=== PATIENT | male | born 1955 | race Caucasian/White ===

== ENCOUNTER 2024-09-26 08:01 | Outpatient (CLI) | payer OTHER, SELFPAY ==
--- NOTE | 2024-09-26 08:00 | ECG_ITS ---
Test Date: 2024-09-26 08:28:24 Measurements Intervals [place] Rate: 62 P: 62 CA: 156 QRS: 16 QRSD: 109 T: 49 QT: 404 QTc: 411 Interpretive Statements SINUS RHYTHM POSSIBLE LEFT ATRIAL ENLARGEMENT [-0.1mV P WAVE IN V1/V2] No previous ECG available for comparison Electronically Signed On 09-26-2024 14:53:44 CDT by Barb Mcdonald M.D.
--- OUTSIDE RECORDS SUMMARY | 2024-09-26 08:14 | XMS_ITS | Encounter Summary ---
Author Organization [facility] Address [facility] [place] [address] Care Team Providers Care Whitewater Rafting Guide Name Role Phone Henrry Coffman MD Primary Care Provider [phone] Nallely Navas MD Unavailable [phone] Encounter Details Date Type Department Care Team (Latest Contact Info) Description 11/24/2023 LinkCyclehart Message Enc [facility] Mult[facility]pecialty [facility] - [address] [place] [address] Henrry Coffman MD [facility] [address] [address] Blood pressure reading needed Social History Tobacco Use Types Packs/Day Years Used Date Smoking Tobacco: Never Smokeless Tobacco: Never Comments:Counseled by DR Ava adames. Alcohol Use Standard Drinks/Week Comments Yes 0 (1 standard drink = 0.6 oz pur e alcohol) 2 drinks weekly (beer or wine) PHQ-2 Answer Date Recorded Patient Health Questionnaire-2 Score 0 11/03/2023 Sex and Gender Information Value Date Recorded Sex Assigned at Not on file Legal Sex Male 7:24 PM CDT Gender Identity Not on file Sexual Orientation Not on file documented as of this encounter Plan of Treatment Upcoming Encounters Date Type Department Care Team (Late st Contact Info) Description 11/14/2024 7:20 AM CDT Office Visit [facility]pec[facility]ty [facility] - [address] [place] [address] Henrry Coffman MD [facility] [address] [address] documented as of this encounter Visit Diagnoses Not on filedocumented in this encounter Additional Health Concerns Assessment Noted Time PHQ-9 Depression Total Score: 0 11/03/19 24 8:07 AM CDT documented as of this encounter Care Teams Whitewater Rafting Guide Relationship Specialty Start Date End Date Henrry Coffman MD [address] [facility] [address] [place] [address] PCP - General INTERNAL MEDICINE 12/21/22 [place] [address] [address] Surgeon SURGERY 03/29/24 documented as of this encounter
--- OUTSIDE RECORDS SUMMARY | 2024-09-26 08:14 | XMS_ITS | Referral Summary ---
Author Organization [facility] Address [address] [address] [facility] [address] [place] [address] Care Team Providers Care Film Color Tester Name Role Phone Unavailable Primary Care Provider Unavailabl e Source Comments [facility],non-owned Affiliates and Associated Physician Practices is amultiple site organization consisting of ambulatory clinics and hospital sitesin [place], [place] and [place]. This disclosure is being madepursuant to the Care Everywhere program and may not contain all information available regarding this patient. Last updated 18.[facility] Banter! Allergies No known active allergies Medications * Be aware that medications may not be up to date on this document. Alwaysverify current medications with the patient. Medication Sig Dispensed Refills Start Date End Date Status LORazepam (ATIVAN) 1 MG tablet Take 1 mg by mouth every 8 hours as needed for Anxiety Active metoprolol succinate XL 24hr (TOPROL XL) 50 MG tablet Take 50 mg by mouth once daily Active buPROPion SR 12hr (WELLBUTRIN-SR) 100 MG tabletIndications:Re current major depressive disorder, in partial remission (HCC) Take 1 tablet by mouth once daily 30 tablet 09/28/2017 Active benzonatate (TESSALON) 200 MG capsuleIndications:A cute maxillary sinusitis, recurrence not specified Take 1 capsule by mouth 3 times daily as needed for Cough 30 capsule 09/28/2017 Active Social History Tobacco Use Types Packs/Day Years Used Date Smoking Tobacco: Never Smokeless Tobacco: Never Sex and Gender Information Value Date Recorded Sex Assigned at Not on file Gender Identity Not on file Sexual Orientation Not on file Last Filed Vital Signs Vital Sign Reading Time Taken Comments Blood Pressure 158/98 09/28/2017 1:05 PM CDT Pulse 89 09/28/2017 12:43 PM CDT Temperature 37.2 C (98.9 F) 09/28/2017 12:43 PM CDT Respiratory Rate 16 09/28/2017 12:43 PM CDT Oxygen Saturation 96% 09/28/2017 12:43 PM CDT Inhaled Oxygen Concentration - - Weight 72.1 kg (159 lb) 09/28/2017 12:43 PM CDT Height 174 cm (5' 8.5 ) 09/28/2017 12:43 PM CDT Body Mass Index 23.82 09/28/2017 12:43 PM CDT Plan of Treatment Not on file
--- OUTSIDE RECORDS SUMMARY | 2024-09-26 08:14 | XMS_ITS | Encounter Summary ---
Author Organization [facility] Address [facility] [place] [address] Care Team Providers Care Logistics Intern Name Role Phone Henrry Coffman MD Primary Care Provider [phone] Nallely Navas MD Unavailable [phone] Encounter Details Date Type Department Care Team (Latest Contact Info) Description 08/06/2024 StreamBase Systemshart Message Enc [facility] Mult[facility]pecialty Care - [place] [address] [place] [address] [address] [place] [address] Henrry Coffman MD [address] [facility] [address] [place], [place] [id number] Hernia surgery referral Social History Tobacco Use Types Packs/Day Years Used Date Smoking Tobacco: Never Passive Smoke Exposure: Past Smokeless Tobacco: Never Comments:Counseled by DR Ava adames. Alcohol Use Standard Drinks/Week Comments Yes 2 (1 standard drink = 0.6 oz pur e alcohol) AUDIT-C Answer Date Recorded Q1: How often do you have a drink containing alc ohol? Patient declined 03/28/2024 Q2: How many drinks containi ng alcohol do you have on a typical day when you are drinking? Patient declined 03/28/2024 Q3: How often do you have si x or more drinks on one occasion? Patient declined 03/28/2024 PHQ-2 Answer Date Recorded Patient Health Questionnaire-2 Score 0 05/16/2024 Sex and Gender Information Value Date Recorded Sex Assigned at Not on file Legal Sex Male 7:24 PM CDT Gender Identity Not on file Sexual Orientation Not on file documented as of this encounter Plan of Treatment Upcoming Encounters Date Type Department Care Team (Late Contact Info) Description 11/14/2024 7:20 AM CDT Office Visit [facility] Mult[facility]pecialty Care - [place] [address] [address] [place] [address] Henrry Coffman MD [address] [place] [address] documented as of this encounter Visit Diagnoses Not on filedocumented in this encounter Additional Health Concerns Assessment Noted Time PHQ-9 Depression Total Score: 0 05/16/20 7:58 AM CDT documented as of this encounter Care Teams Logistics Intern Relationship Specialty Start Date End Date Henrry Coffman MD [address] [place] [address] PCP - General INTERNAL MEDICINE 12/21/22 Nallely Navas MD [address] [place] [address] [place] [address] Surgeon SURGERY 03/29/24 documented as of this encounter
--- OUTSIDE RECORDS SUMMARY | 2024-09-26 08:14 | XMS_ITS | Patient Health Summary ---
Author Organization [facility] Address [address] [place] [address] Care Team Providers Care Community Service Director Name Role Phone Unavailable Primary Care Provider Unavailabl e Note from [facility],non-owned Affiliates and Associated Physician Practices is amultiple site organization consisting of ambulatory clinics and hospital sitesin [place], [place] and [place]. This disclosure is being madepursuant to the Care Everywhere program and may not contain all information available regarding this patient. Last updated 18.[facility] dotCloud Allergies No known active allergies Medications * Be aware that medications may not be up to date on this document. Alwaysverify current medications with the patient. * LORazepam (ATIVAN) 1 MG tablet Take 1 mg by mouth every 8 hours as needed for Anxiety * metoprolol succinate XL 24hr (TOPROL XL) 50 MG tablet Take 50 mg by mouth once daily * buPROPion SR 12hr (WELLBUTRIN-SR) 100 MG tablet(Started 09/28/2017) Take 1 tablet by mouth once daily * benzonatate (TESSALON) 200 MG capsule(Started 09/28/2017) Take 1 capsule by mouth 3 times daily as needed for Cough Social History Tobacco Use Types Packs/Day Years [...] Mass Index 23.82 09/28/2017 12:43 PM CDT Procedures * STREP A SCREEN - POINT OF CARE (AMB) STL(Performed 09/28/2017) Performed for Acute maxillary sinusitis, recurrence not specified * PATHOLOGY REPORTS - HPF HISTORICAL(Performed 12/26/2008) Results * STREP A SCREEN - POINT OF CARE (AMB) STL (09/28/2017 1:03 PM CDT) Strep A Rapid POCT Negative Negative Strep A Internal Control Present Lot # [id number] Expiration Date 04 08 2019 Throat ENTIRE THROAT (SURFACE REGION OF NECK) / Unknown 09/28/2017 1:03 PM CDT Erica Higginbotham APRN-[employer] SYSTEMS ENGINEER LAB - POINT OF CA RE ORDERABLES * PATHOLOGY REPORTS - HPF HISTORICAL (12/26/2008 3:22 PM CDT) 12/26/2008 3:[address] [facility] - 12/26/2008 3:22 PM CDT Zach Rogers MD LAB - PATHOLOGY/CYTO LOGY ORDERABLES [facility]
--- OUTSIDE RECORDS SUMMARY | 2024-09-26 08:14 | XMS_ITS | Clinical Summary ---
Author Organization [facility] Address [facility] [place] [address] Care Team Providers Care Baby Formula Mixer Name Role Phone Henrry Coffman MD Primary Care Provider [phone] Nallely Navas MD Unavailable [phone] Allergies No known active allergies Medications LORazepam (ATIVAN) 1 MG tablet Take 1 tablet (1 mg total) by mouth every 6 (six) hours as needed for Anxiety. Active metoprolol succinate ER (TOPROL-XL) 50 MG 24 hr tabletIndications :Essential hypertension,Migr will with aura and without status migrainosus, not intractable Take 1 tablet (50 mg total) by mouth daily. 90 tablet 1 05/16/2024 Active buPROPion SR (WELLBUTRIN SR) 100 MG 12 hr tabletIndications :Recurrent major depressive disorder, in full remission Take 1 tablet (100 mg total) by mouth daily. 90 tablet 1 05/16/2024 Active lisinopril (PRINIVIL) 5 MG tabletIndications :Essential hypertension Take 1 tablet (5 mg total) by mouth daily. 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 [place] [address] Henrry Coffman MD Referral 08/06/2024 MyChart Message Enc [facility] Multispecial[facility] Care - [place] [address] [place] [address] Henrry Coffman MD Hernia surgery referral from Last 3 Months Immunizations Name Administration Dates Next Due Td (TDVAX) 03/03/2021 Family History Medical History Relation Comments Lung Cancer Father COPD Mother Scarlet Fever as a child/Heart valve damage Relation Status Comments Father Mother Social History Tobacco Use Types Packs/Day Years Used Date Smoking Tobacco: Never Passive Smoke Exposure: Past Smokeless Tobacco: Never Tobacco Cessation:Counseling Given: Yes Comments:Counseled by DR Coffman. Alcohol Use Standard Drinks/Week Comments Yes 2 [...] Sign Reading Time Taken Comments Blood Pressure 137/80 05/16/2024 7:31 AM CDT Pulse 65 05/16/2024 7:31 AM CDT Temperature 36.6 C (97.9 F) 05/16/2024 7:31 AM CDT Respiratory Rate 16 05/16/2024 7:31 AM CDT Oxygen Saturation 100% 03/29/2024 8:47 AM CDT Inhaled Oxygen Concentration - - Weight 70.8 kg (156 lb) 05/16/2024 7:31 AM CDT Height 172.7 cm (5' 8 ) 05/16/2024 7:31 AM CDT Body Mass Index 23.72 05/16/2024 7:31 AM CDT Plan of Treatment Upcoming Encounters Date Type Department Care Team (Late st Contact Info) Description 11/14/2024 7:20 AM CDT Office Visit [facility] Multispecialty Care - [address] [place], [place] [id number] Henrry Coffman MD [address] [facility] [address] [place], [place] [address] Health Maintenance Due Date Last Done Comments PHQ-2 (Physician [place]) 07/19/2024 05/16/2024 Pneumococcal Vaccine: 65+ Ye ars (1 of 1 - PCV) 10/26/2024 Postponed from 12/06 (Patient Refused) Zoster Vaccines (1 of 2) 11/02/2024 Pos tponed from 2006 (Patient Refused) COVID-19 Vaccine (1 - 2023-2 5 season) 2025 Postponed from 03/19 (Patient Refused) Annual Medicare Wellness Visit 03/30/2025 03/29/2024 Influenza Adult (#1) 2025 Postpon ed from 04/18/2024 (Patient Refused) Colorectal Cancer Screening FIT-DNA (3 Years) 08/02/2027 08/02/2024 DTaP, Tdap and Td Vaccines ( 1 - Tdap) 03/04/2031 03/03/2021 Postponed from 03/04 (Future Appointment) RSV Immunization or 60+ Years (1 - 1-dose 75+ series) 12/07/2031 Hepatitis C Completed 03/03/2023 Meningococcal B Vaccine Aged Out No l onger eligible based on patient's age to complete this topic Meningococcal Vaccine Aged Out No faith chelsi eligible based on patient's age to complete this topic RSV Immunizations Under 20 Months Aged Out No longer eligible based on patient's age to complete this topic Procedures Procedure Name Priority Date/Time Associated Diagnosis Comments COLOGUARD (EXACT SCIENCE) Routine 08/02/2024 7:30 AM TRUST AND ESTATES ATTORNEY Screen for colon cancer HEPATITIS C ANTIBODY Routine 03/03/2023 10:39 AM CDT Annual physical exam Routine general medical examination at a health care facility from Last 3 Months or Most Recently Relevant to Health Maintenance Results * COLOGUARD (EXACT SCIENCE) (08/02/2024 7:30 AM TRUST AND ESTATES ATTORNEY) COLOGUARD RESULT Negative Negative [employer] (CLIA #:[id number]) Comment: NEGATIVE TEST RESULT. A negative Cologuard result indicates a low likelihood that a colorectal cancer (CRC) or advanced adenoma (adenomatous polyps with more advanced pre-malignant features) is present. The chance that a person with a negative Cologuard test has a colorectal cancer is less than 1 in 1500 (negative predictive value >99.9%) or has an advanced adenoma is less than 5.3% (negative predictive value 94.7%). These data are based on a prospective cross-sectional study of 10,000 individuals at average risk for colorectal cancer who were screened with both Cologuard and colonoscopy. (Troy Arce al, N Engl J Med 2014;370(14):2542-4784) The normal value (reference range) for this assay is negative. COLOGUARD RE-SCREENING RECOMMENDATION: Periodic colorectal cancer screening is an important part of preventive healthcare for asymptomatic individuals at average risk for colorectal cancer. Following a negative Cologuard result, the [place] Cancer Society and U.S. Multi-Society Task Force screening guidelines recommend a Cologuard re-screening interval of 3 years. References: [place] Cancer Society Guideline for Colorectal Cancer Screening: https://www.cancer.org/cancer/kvdec-tqadnc-ijuqvg/shkzoizvx-shfowzghu-xosfzld/ac s-rec ommendations.html.; Catracho TORRES, Jeannie SPICER, Lucas FAN, Colorectal Cancer Screening: Recommendations for Physicians and Patients from the U.S. Multi-Society Task Force on Colorectal Cancer Screening , Am J Gastroenterology 2017; 112:4321-2899. TEST DESCRIPTION: Composite algorithmic analysis of stool DNA-biomarkers with hemoglobin immunoassay. Quantitative values of individual biomarkers are not reportable and are not associated with individual biomarker result reference ranges. Cologuard is intended for colorectal cancer screening of adults of either sex, 45 years or older, who are at average-risk for colorectal cancer (CRC). Cologuard has been approved for use by the U.S. FDA. The performance of Cologuard was established in a cross sectional study of average-risk adults aged 50-84. Cologuard performance in patients ages 45 to 49 years was estimated by sub-group analysis of near-age groups. Colonoscopies performed for a positive result may find as the most clinically significant lesion: colorectal cancer [4.0%], advanced adenoma (including sessile serrated polyps greater than or equal to 1cm diameter) [20%] or non- advanced adenoma [31%]; or no colorectal neoplasia [45%]. These estimates are derived from a prospective cross-sectional screening study of 10,000 individuals at average risk for colorectal cancer who were screened with both Cologuard and colonoscopy. (Troy Schwarz et al, N Engl J Med 2014;370(14):5829-7720.) Cologuard may produce a false negative or false positive result (no colorectal cancer or precancerous polyp present at colonoscopy follow up). A negative Cologuard test result does not guarantee the absence of CRC or advanced adenoma (pre-cancer). The current Cologuard screening interval is every 3 years. ([place] Cancer Society and U.S. Multi-Society Task Force). Cologuard performance data in a 10,000 patient pivotal study using colonoscopy as the reference method can be accessed at the following location: www.[employer].Viewpoint Digital/results. Additional description of the Cologuard test process, warnings and precautions can be found at www.[employer].com. STOOL STOOL SPECIMEN / Unknown 08/02/2024 7:30 AM TRUST AND ESTATES ATTORNEY 08/03/2024 10:09 AM TRUST AND ESTATES ATTORNEY us Henrry Coffman MD BODY FLUIDS AND STOOLS ORDERABLE S Final Result [facility]) [address] [place] [address], [facility] (CLIA #:[id number]) [address] [place] [address] * HEPATITIS C ANTIBODY (03/03/2023 10:39 AM CDT) HEPATITIS C AB NON-REACTI VE NON-REACT ROHINI 03/03/2023 6:38 PM CDT [facility] Comment: ANTIBODIES TO HCV NOT DETECTED. DOES NOT EXCLUDE THE POSSIBILITY OF EXPOSURE TO HCV. 03/03/2023 10:3 9 AM CDT Henrry Coffman MD LABORATORY Final Result Performing Organization Address City/State/[facility] Co de Phone Number [facility] [address] [place] [address], [id number] from Last 3 Months or Most Recently Relevant to Health Maintenance Insurance [employer] Care Teams Baby Formula Mixer Relationship Specialty Start Date End Date Henrry Coffman MD [address] [facility] [address] [place] [address] PCP - General INTERNAL MEDICINE 12/21/22 [place] [address] [facility] [address] [place] [address] Surgeon SURGERY 03/29/24
--- OUTSIDE RECORDS SUMMARY | 2024-09-26 08:14 | XMS_ITS | Clinical Summary ---
Author Organization [facility] Address [address] [place] [address] Care Team Providers Care Slash Trimmer Name Role Phone Unavailable Primary Care Provider Unavailabl e Source Comments [facility],non-owned Affiliates and Associated Physician Practices is amultiple site organization consisting of ambulatory clinics and hospital sitesin [place], [place], [place] and [place]. This disclosure is being madepursuant to the Care Everywhere program and may not contain all information available regarding this patient. Last updated 18.[facility] [employer] Allergies No known active allergies Medications * [...] needed for Cough 30 capsule 09/28/2017 Active Family History Medical History Relation Name Comments Cancer - Lung Father Other - Cardiac Mother Mitral valve stenosis Relation Name Status Comments Father Mother Social History Tobacco [...] 09/28/2017 12:43 PM CDT Plan of Treatment Health Maintenance Due Date Last Done Comments COLOGUARD (AGES 45-75) - COL ON CA SCREENING 1955 COLON MONITORING 1956 COLONOSCOPY - COLON CA SCREENING 1956 CT COLONOGRAPHY - COLON CA SCREENING 1955 Colorectal Cancer Screening 1956 FIT - COLON CA SCREENING 1956 FLEX SIG - COLON CA SCREENING 1956 LIPID TESTING 1956 HEPATITIS C SCREENING 12/02/1974 DTAP/TDAP/TD VACCINES (1 - Tdap) 12/07/1975 PNEUMOCOCCAL VACCINE 50+ (1 of 1 - PCV) 2006 ZOSTER VACCINE (1 of 2) 2006 COVID-19 VACCINE ( - 2023-2 5 season) 2024 INFLUENZA VACCINE (#1) 2024 DEPRESSION SCREENING 07/19/2024 Respiratory Syncytial Virus (RSV) Vaccine Pt: or over 60 yrs (1 - 1-dose 75+ series) 12/07/2031 HEPATITIS B VACCINE Aged Out No longe r eligible based on patient's age to complete this topic HIB VACCINE Aged Out No longer eligi ble based on patient's age to complete this topic HPV VACCINE Aged Out No longer eligi ble based on patient's age to complete this topic MENINGOCOCCAL (Group B) VACCINE Aged Out No longer eligible based on patient's age to complete this topic MENINGOCOCCAL VACCINE Aged Out No faith chelsi eligible based on patient's age to complete this topic
[2024-09-26 08:39] LABS: Basophils Percent Auto 0.9 % (0.2-1.2); Eosinophils Absolute Auto 0.1 K/mm3 (0-0.3); Eosinophils Percent Auto 2.7 % (0-4.4); Hematocrit 40.6 % (42.0-52.0); Hemoglobin 13.3 g/dL (14.0-18.0); Immature Granulocyte Absolute 0.01 K/mm3 (0.00-0.031); Immature Granulocyte Percent A 0.3 % (0-0.5); Lymphocytes Absolute Auto 1.28 K/mm3 (0.9-3.2); Lymphocytes Percent Auto 38.6 % (18.3-44.2); Mean Corpuscular HGB Conc 32.8 g/dl (32-36); Mean Corpuscular Hemoglobin 30.5 pg (26-34); Mean Corpuscular Volume 93.1 fl (80-100); Mean Platelet Volume 9.7 fl (7.4-10.4); Monocytes Absolute Auto 0.6 K/mm3 (0.1-0.6); Monocytes Percent Auto 17.5 % (2.6-8.5); Neutrophils Absolute Auto 1.3 K/mm3 (1.3-6.7); Platelet Count Result 161 k/mm3 (150-375); Red Blood Count 4.36 M/mm3 (4.6-6.20); Red Cell Distribution Width 12.4 % (11.5-14.5); White Blood Count 3.3 K/mm3 (4.5-10.0)
== END 2024-09-26 08:02 | disposition home or self-care (01) ==
PROVIDERS: PCP Internal Medicine; Visit Provider Surgery
DX: K40.90 Unilateral inguinal hernia, without obstruction or gangrene, not specified as recurrent (principal); I10 Essential (primary) hypertension; Z01.818 Encounter for other preprocedural examination
CPT/HCPCS: 36415; 85025; 86850; 86900; 86901; 93005

== ENCOUNTER 2024-10-06 00:28 | Day surgery (SDC) | payer OTHER, SELFPAY ==
[2024-09-21 15:45] VITALS: BMI 22.4
--- NOTE | 2024-09-21 16:06 | PC.NURSE ---
Report to the Outpatient Waiting Room, entrance under the green pavilion located off [facility], at time __8:30am on date ___10/06/24____. Planned Procedure Time: __10:30am .? Time changes happen often and if your time is changed the preop area will call you the afternoon before. - You and your visitor will be asked to self-screen and do not enter if you have any COVID symptoms. Please call surgeon if you need to reschedule. - A mask is optional within the hospital at this time. Patients may have clear liquids (water, carbonated beverages, clear teas, apple juice) until 3 hours prior to surgery (7:30AM) with a maximum of 20 ounces. - No food from midnight until time of surgery and no smoking, or chewing tobacco (or any form of nicotine). No chewing gum, candy or mints. Take only the following medications with a SIP of water on the morning of surgery: ____BUPROPION DO NOT STOP ANY OF YOUR OTHER PRESCRIPTION MEDICATIONS PRIOR TO SURGERY EXCEPT THE FOLLOWING Hold all vitamins and supplements for 3 days per anesthesiologist. Date to take last dose 10/02/24 Please no make-up, nail occitan, hairspray, perfume, deodorant, or body powder the day of surgery.? No jewelry (including any body piercings) or valuables the day of surgery, leave them at home.? Please take a shower or bath the night before, or the morning of, surgery with an antibacterial soap.? Wear comfortable, loose fitting clothing.? - Jewelry must be removed prior to entering the operating room.? Rings and piercings that are not removed may be cut off. - The hospital will not accept responsibility for valuables.? - Please leave all valuables, including medications, at home the day of surgery. If you are going home after surgery, a licensed driver education road instructor must drive you home.? - NO public transportation without another adult if you receive anesthesia. - We recommend that an adult stay with you for 24 hours following discharge. - We also recommend that you do not drive, make important decision, drink alcoholic beverages, or take any drugs that were not prescribed by your health care provider for at least 24 hours after your discharge time. Follow any additional instructions given to you from your surgeon. Telephone instructions given to ___PATIENT and asked if any additional questions and then verbalized understanding. Patient advised to call surgeon office or pre surgery nurse liaison [phone] if any additional questions.
--- NOTE | 2024-10-04 15:08 | P.SS_ITS ---
Same Day Admit/Disch: HPI History of Present Illness Chief complaint: left inguinal hernia Narrative: Scooter Momin is a 68 year old male who has noticed some discomfort in the left groin and left testicle for about 4 years. He has had a bulge in the left groin for that long as well. He was seen recently in the office and found to have a large left inguinal hernia. After discussion, he is taken to surgery now for robotic laparoscopic repair of left inguinal hernia PMFSH Past Medical History Medical History Hypertension Family History Family History Father Family history of lung cancer Social History Social History Smoking status: Never smoker Second hand tobacco smoke exposure: Yes Alcohol intake: current Drinks per week: 2 Do You Feel Safe in your Home?: Yes Lack of Transportation: No Lack of Food: Never True Current Housing: Decline to Answer Concerned About Future Housing: No Difficulty Paying Gas/Electric Bills: No Difficulty Paying for Meds: No Currently Unemployed: No Education: Decline to Answer Difficulty w/ Childcare or Family Care: No Living arrangements: with family Additional living arrangements comments: AND DAUGHTER Spiritual care concerns: No Same Day Admit/Disch: Med Pre-admit Medications Home Medications ?Medication ?Instructions ?Recorded ?Confirmed ?Type bupropion HCl 100 mg tablet,12 hr See Rx Instructions .Route 11/13/22 10/06/24 Rx sustained-release .COMPLEX #90 tabs metoprolol succinate 50 mg See Rx Instructions .Route 02/07/23 10/06/24 Rx tablet,extended release 24 hr .COMPLEX #90 tabs cholecalciferol (vitamin D3) 125 5,000 unit PO ONCE 09/21/24 10/06/24 History mcg (5,000 unit) tablet flaxseed 1,000 mg capsule 3,000 mg PO DAILY 09/21/24 10/06/24 History lisinopril 5 mg tablet 5 mg PO QAM 09/21/24 10/06/24 History magnesium carb,citrate,oxide 300 mg PO DAILY 09/21/24 10/06/24 History (Magnesium Complex) meclizine 25 mg tablet 25 mg PO QID 09/21/24 09/21/24 History ibuprofen 600 mg tablet 600 mg PO Q6H PRN pain #14 tabs 10/06/24 Rx oxycodone-acetaminophen 5 mg-325 0.5 - 1 tablet PO Q4H PRN pain #10 10/06/24 Rx mg tablet (Percocet) tabs Review of Systems Review of Systems All systems reviewed & are unremarkable except as noted in HPI and below (HPI) Eyes Comments: Has a prosthetic eye globe Exam Const: General: comfortable, no acute distress, alert and awake HENMT: Head: normocephalic and atraumatic Mouth: Yes Normal oral and palatal mucosa present Neck: Neck: normal visual inspection, no lymphadenopathy and nontender Resp: Effort & Inspection: normal respiratory effort Auscultation: clear to auscultation bilaterally Cardio: Rate: regular rate Rhythm: regular rhythm Heart sounds: no gallops, no murmurs and no rubs GI: Inspection: non-distended GI Palp: Yes Soft to palpation, No Tenderness to palpation present (GI), No Hepatomegaly present and No Splenomegaly present : Male General Exam: Yes hernia (Reducible left inguinal hernia, outside Hesselbach triangle) Penis: Yes normal penis Scrotum: scrotum normal Testes: Testes normal Skin: Lesions: no lesions Rashes: no rashes Neuro: General: no focal motor deficits and CN's II-XI intact bilaterally Cranial nerves: Yes Equal, round and reactive pupils present, Yes Bilaterally intact EOM present, Yes facial symmetry and Yes Midline tongue present Speech: normal speech Motor exam (neuro): 5/5 motor strength present throughout and Motor abnormalities not present Extrem: General: no clubbing, cyanosis or edema and edema Psych: Affect: normal affect Thought process: Normal thought process present Insight: Good insight present (Psych) DS: Summary Time Spent with Patient Time attestation: Total time spent providing and/or coordinating discharge services: DS: Admitting Diagnosis Discharge Date 10/06/2024 Admitting Diagnosis * Symptomatic reducible left inguinal hernia-plan to proceed with robotic laparoscopic left inguinal hernia repair with mesh. This procedure was discussed with the patient in detail. The risks, benefits, alternatives, and usual recovery have been discussed. The use of mesh for the hernia repair has been discussed. All questions were answered. He understands and agrees to go ahead. * Essential hypertension * Eye prosthesis DS: Discharge Diagnosis Discharge Diagnosis (1) Left inguinal hernia: Code(s): K40.90 - Unilateral inguinal hernia, without obstruction or gangrene, not specified as recurrent Status: Chronic Assessment and Plan: Repaired robotically with mesh 10/06/[address] Soni Discharge Plan Discharge Patient Disposition: Home, Self-Care Discharge Instructions: 1. May shower the day after surgery over incisions. 2. Call office for: -Wound increasingly painful or bleeding -Vomiting -Fever of greater than 101 degrees 3. Sedentary activity next couple of days. Wear scrotal support for 1 week except when bathing or sleeping. 4. If no bowel movement for three days, take 1 oz. (30 ml) Milk of Magnesia, if no results, take Fleets enema. 5. No heavy lifting > 15-20 pounds for 2 weeks. 6. No driving for 3 days or while taking narcotic pain medications. 7. Up walking 10-30 minutes three times per day. 8. Resume previous home medications. 9. Follow-up 10-14 days in office for wound check or as previously scheduled. 10. Oral pain medications prescription to be sent home with patient. 11. NUTRITION: Start out by drinking fluids and increase your diet as tolerated. If you experience nausea, try dry toast, crackers, and 7-UP. If nausea or vomiting persists, contact your surgeon?s office. Patient Language: Polish Stand Alone Forms: General Discharge Instructions Follow-up/Referrals: Kenney Soni MD [Physician] - 2 Weeks Discharge Medications: New oxycodone-acetaminophen [Percocet] 5-325 mg tablet 0.5 - 1 tablet PO Q4H PRN (Reason: pain) Qty: 10 0RF ibuprofen 600 mg tablet 600 mg PO Q6H PRN (Reason: pain) Qty: 14 0RF Continued lisinopril 5 mg tablet 5 mg PO QAM meclizine 25 mg tablet 25 mg PO QID cholecalciferol (vitamin D3) 125 mcg (5,000 unit) tablet 5,000 unit PO ONCE Magnesium Complex 300 mg magnesium tablet 300 mg PO DAILY flaxseed 1,000 mg capsule 3,000 mg PO DAILY bupropion HCl 100 mg tablet sustained-release 12 hr See Rx Instructions .ROUTE .COMPLEX Qty: 90 0RF Dose Instruction: TAKE ONE TABLET BY MOUTH ONCE DAILY Patient Comments: QAM Rx Instructions: TAKE ONE TABLET BY MOUTH ONCE DAILY metoprolol succinate 50 mg tablet extended release 24 hr See Rx Instructions .ROUTE .COMPLEX Qty: 90 4RF Dose Instruction: TAKE ONE TABLET BY MOUTH ONCE DAILY Patient Comments: Rx Instructions: TAKE ONE TABLET BY MOUTH ONCE DAILY
[2024-10-06] VITALS (8 sets, daily range): BP systolic 124–162; BP diastolic 71–103; PULSE 56–67; RESP 12–18; TEMP 36.3; O2SAT 97–100
--- OUTSIDE RECORDS SUMMARY | 2024-10-06 00:32 | XMS_ITS | Clinical Summary ---
Author Organization [facility] Address [facility] [place] [address] Care Team Providers Care Technology Applications Engineer Name Role Phone Henrry Coffman MD Primary Care Provider [phone] Nallely Navas MD Unavailable [phone] Allergies No known active allergies Medications LORazepam [...] Encounters Date Type Department Care Team Description 09/26/2024 Scan [facility] Scanned, Doc [facility] Lab (SCAN) 08/21/2024 Scan [facility] Scanned, Doc [facility] Group 08/06/2024 Telephone [facility] [place] [address] [place] [address] Henrry Coffman MD Referral 08/06/2024 MyChart Message Enc [facility] [place] [address] [place] [address] Henrry Coffman MD Hernia surgery referral from [...] Description 11/14/2024 7:20 AM CDT Office Visit [facility] [place] [address] [address] [address] [place] [address] Henrry Coffman MD [address] [facility] [address] [place], [place] [id number] Health Maintenance Due Date Last Done Comments PHQ-2 (Physician Hiller) 07/19/2024 05/16/2024 Pneumococcal Vaccine: 65+ Ye ars [...] Procedure Name Priority Date/Time Associated Diagnosis Comments OUTSIDE LAB (SCAN ORDER) 09/26/2024 OUTSIDE LAB (SCAN ORDER) 09/26/2024 COLOGUARD (EXACT SCIENCE) Routine 08/02/2024 7:30 AM PARTS EXPEDITER Screen for colon cancer HEPATITIS C ANTIBODY Routine 03/03/2023 10:39 AM CDT Annual physical exam Routine general medical examination at a health care facility from Last 3 Months or Most Recently Relevant to Health Maintenance Results * OUTSIDE LAB (SCAN ORDER) (09/26/2024) Only the most recent of2 resultswithin the time period is included. 09/26/2024 us Doc [facility] Scanned SCANNING Final Resu lt * COLOGUARD (EXACT SCIENCE) (08/02/2024 7:30 AM PARTS EXPEDITER) COLOGUARD RESULT Negative Negative [facility] (CLIA #:[id number]) Comment: NEGATIVE TEST RESULT. A negative Cologuard [...] (Troy Arce al, N Engl J Med 2014;370(14):3830-2223) The normal value (reference range) for this assay is negative. COLOGUARD RE-SCREENING RECOMMENDATION: Periodic colorectal cancer screening is an important part of preventive healthcare for asymptomatic individuals at average risk for colorectal cancer. Following a negative Cologuard result, the [place] [employer] Society and U.S. Multi-Society Task Force screening guidelines recommend a Cologuard re-screening interval of 3 years. References: [place] [employer] Guideline for Colorectal Cancer Screening: https://www.cancer.org/cancer/xvvmj-skafdh-gpdbid/uwpyyqrcp-fwuiaystr-yufignn/ac s-rec ommendations.html.; Catracho DK, Jeannie CR, Lucas ManningK, Colorectal Cancer Screening: Recommendations for Physicians and Patients from the U.S. Multi-Society Task Force on Colorectal Cancer Screening , Am J Gastroenterology 2017; 112:2831-8622. TEST DESCRIPTION: Composite algorithmic analysis of stool [...] (Troy Arce al, N Engl J Med 2014;370(14):2524-8947.) Cologuard may produce a false negative or false positive result (no colorectal cancer or precancerous polyp present at colonoscopy follow up). A negative Cologuard test result does not guarantee the absence of CRC or advanced adenoma (pre-cancer). The current Cologuard screening interval is every 3 years. ([place] [employer] and U.S. Multi-Society Task Force). Cologuard performance data in a 10,000 patient pivotal study using colonoscopy as the reference method can be accessed at the following location: www.GMI Ratings.FootballScout/results. Additional description of the Cologuard test process, warnings and precautions can be found at www.colRingerscommunicationsrd.com. STOOL STOOL SPECIMEN / Unknown 08/02/2024 7:30 AM PARTS EXPEDITER 08/03/2024 10:09 AM PARTS EXPEDITER us Henrry Coffman MD BODY FLUIDS AND STOOLS ORDERABLE S Final Result Performing Organization Address [facility] de Phone Number [facility] (Deck[facility] 145 LAB) [address] [place] [address], [facility] (CLIA #:[id number]) [address] [place] [place] [address] * HEPATITIS C ANTIBODY (03/03/2023 10:39 AM CDT) HEPATITIS C AB NON-REACTI VE NON-REACT ROHINI 03/03/2023 6:38 PM CDT [facility] Comment: ANTIBODIES TO HCV NOT DETECTED. DOES NOT EXCLUDE THE POSSIBILITY OF EXPOSURE TO HCV. 03/03/2023 10:3 9 AM CDT us Henrry Coffman MD LABORATORY Final Result Performing Organization Address [facility] de Phone Number [facility] [address] [place] [address], [id number] from Last 3 Months or Most Recently Relevant to Health Maintenance Insurance [employer] Care Teams Technology Applications Engineer Relationship Specialty Start Date End Date Henrry Coffman MD [address] [address] PCP - General INTERNAL MEDICINE 12/21/22 [place] [id number] [address] Surgeon SURGERY 03/29/24
--- OUTSIDE RECORDS SUMMARY | 2024-10-06 00:32 | XMS_ITS | Clinical Summary ---
Author Organization [facility] Address [address] [place] [address] Care Team Providers Care Doughnut Batter Mixer Name Role Phone Unavailable Primary Care Provider Unavailabl e Source Comments [facility],non-owned Affiliates and Associated Physician Practices is amultiple site organization consisting of ambulatory clinics and hospital sitesin [place], [place], [place] and [place]. This disclosure is being madepursuant to the Care Everywhere program and may not contain all information available regarding this patient. Last updated 18.[facility] [employer] Allergies No known active allergies Medications * [...] current major depressive disorder, in partial remission Take 1 tablet by mouth once daily [...] to complete this topic MENINGOCOCCAL (Group B) VACC INE SHARED DECISION-MAKING Aged Out No longer eligibl e based on patient's age to complete this topic MENINGOCOCCAL GROUPS A/C/Y/W VACCINE Aged Out No longer eligible b ased on patient's age to complete this topic
--- OUTSIDE RECORDS SUMMARY | 2024-10-06 00:32 | XMS_ITS | Encounter Summary ---
Author Organization [facility] Address [facility] [place] [address] Care Team Providers Care Editor In Chief Newspaper Name Role Phone Henrry Coffman MD Primary Care Provider [phone] Nallely Navas MD Unavailable [phone] Encounter Details Date Type Department Care Team (Latest Contact Info) Description 08/06/[address] [facility] [place] [address] [place] [address] [address] [place] [address] Henrry Coffman MD [address] [facility] [address] [place], [place] [id number] Hernia surgery referral Social History Tobacco Use [...] Description 11/14/2024 7:20 AM CDT Office Visit [facility] [place] [address] [address] [place] [address] Henrry Coffman MD [address] [place] [address] documented as of this encounter Visit Diagnoses Not on filedocumented in this encounter Additional Health Concerns Assessment Noted Time PHQ-9 Depression Total Score: 0 05/16/20 7:58 AM CDT documented as of this encounter Care Teams Editor In Chief Newspaper Relationship Specialty Start Date End Date Henrry Coffman MD [address] [place] [address] PCP - General INTERNAL MEDICINE 12/21/22 Nallely Navas MD [address] [place] [address] [place] [address] Surgeon SURGERY 03/29/24 documented as of this encounter
--- OUTSIDE RECORDS SUMMARY | 2024-10-06 00:32 | XMS_ITS | Encounter Summary ---
Author Organization [facility] Address [facility] [place] [address] Care Team Providers Care Public Works Director Name Role Phone Henrry Coffman MD Primary Care Provider [phone] Nallely Navas MD Unavailable [phone] Encounter Details Date Type Department Care Team (Latest Contact Info) Description 11/24/2023 Makstrhart Message Enc [facility] [place] [facility] - [address] [place] [address] Henrry Coffman MD [facility] [address] [address] Blood pressure reading needed Social [...] Description 11/14/2024 7:20 AM CDT Office Visit [facility] [place] [facility] - [address] [place] [address] Henrry Coffman MD [facility] [address] [address] documented as of this encounter Visit Diagnoses Not on filedocumented in this encounter Additional Health Concerns Assessment Noted Time PHQ-9 Depression Total Score: 0 11/03/19 24 8:07 AM CDT documented as of this encounter Care Teams Public Works Director Relationship Specialty Start Date End Date Henrry Coffman MD [address] [facility] [address] [place] [address] PCP - General INTERNAL MEDICINE 12/21/22 [place] [address] [address] Surgeon SURGERY 03/29/24 documented as of this encounter
[2024-10-06] MEDS: KETOROLAC 15 MG/ML VIAL (*BKC) IV PUSH (09:20)
--- NOTE | 2024-10-06 10:16 | WPDHPUPDATE1 ---
History and Physical Update Update Date/Time: 10/06/24 10:16 History and Physical has been reviewed, including an updated exam of the patient. There are NO changes in the patient's condition. Risks, benefits, and alternatives have been discussed and questions answered. Patient agrees to proceed with procedure.
--- NOTE | 2024-10-06 10:26 | P.PNAN_ITS ---
Anes - Initial Pre Proc Eval Procedure: Operation Date: 10/06/24 10:30 Proposed Procedures p Robotic Repair Left Inguinal Hernia with Mesh - Kenney Soni MD Date/Time: 10/06/24 10:26 Surgeon: Kenney Soni MD Pre Op Diagnosis: left inguinal hernia Patient Data Age: 68 Gender: M Height: 1.7 m Weight: 66.2 kg Last Vital Signs Temp 97.3 F L 10/06/24 10:00 Pulse 66 10/06/24 10:00 Resp 16 10/06/24 10:00 BP 162/103 H 10/06/24 10:00 Pulse Ox 97 10/06/24 10:00 O2 Del Method Room Air 10/06/24 10:00 Allergies Allergy/AdvReac Type Severity Reaction Status Date / Time No Known Allergies Allergy Mild Verified 10/06/24 09:48 Home Medications ?Medication ?Instructions ?Recorded ?Confirmed ?Type bupropion HCl 100 mg tablet,12 hr See Rx Instructions .Route 11/13/22 10/06/24 Rx sustained-release .COMPLEX #90 tabs metoprolol succinate 50 mg See Rx Instructions .Route 02/07/23 10/06/24 Rx tablet,extended release 24 hr .COMPLEX #90 tabs cholecalciferol (vitamin D3) 125 5,000 unit PO ONCE 09/21/24 10/06/24 History mcg (5,000 unit) tablet flaxseed 1,000 mg capsule 3,000 mg PO DAILY 09/21/24 10/06/24 History lisinopril 5 mg tablet 5 mg PO QAM 09/21/24 10/06/24 History magnesium carb,citrate,oxide 300 mg PO DAILY 09/21/24 10/06/24 History (Magnesium Complex) meclizine 25 mg tablet 25 mg PO QID 09/21/24 09/21/24 History Patient hx anesthesia problems: none Family hx anesthesia problems: none Results Review: All pre-operative results and documents have been reviewed as part of the pre- operative evaluation. [facility] Past Medical History Medical History Hypertension Family History Family History Father Family history of lung cancer Social History Social History Smoking status: Never smoker Second hand tobacco smoke exposure: Yes Alcohol intake: current Drinks per week: 2 Do You Feel Safe in your Home?: Yes Lack of Transportation: No Lack of Food: Never True Current Housing: Decline to Answer Concerned About Future Housing: No Difficulty Paying Gas/Electric Bills: No Difficulty Paying for Meds: No Currently Unemployed: No Education: Decline to Answer Difficulty w/ Childcare or Family Care: No Living arrangements: with family Additional living arrangements comments: AND DAUGHTER Spiritual care concerns: No Anes - Eval Final PreProcedure Day of Procedure 10/06/24 10:26 Patient weight: normal Heart: regular rate and rhythm Lungs: clear to auscultation Airway: Mallampati scale class II Neurological: alert and oriented Last oral intake: >/= 8 hours ASA classification: II Emergent: no Anesthetic plan: proceed Anesthesia type and monitoring: general ETT and standard monitoring Results Review: All pre-operative results and documents have been reviewed as part of the pre- operative evaluation. Informed Consent: The patient's anesthetic plan and its attendant risks and benefits were discussed with the patient/family/POA. Questions were solicited and answers provided to the satisfaction of the patient/family/POA.
[2024-10-06] MEDS: ceFAZolin 2 GM/D5W 50 ML 2 GM/50 ML BAG IVPB (10:33)
[2024-10-06] MEDS: BUPIVACAINE/EPINEPHRINE 0.5% 30 ML VIAL INFILTRATE (10:33)
--- NOTE | 2024-10-06 12:35 | P.OP_ITS ---
Procedure Note - Detailed Date of Procedure 10/06/24 Pre-op Diagnosis left inguinal hernia Post-op Diagnosis Same Procedure Performed Robotic laparoscopic repair left inguinal hernia with mesh Surgeon Kenney Soni MD [employer] And Plastics Worker Scottie KOHLI, Zach KOHLI Anesthesia General and Local Indications Patient has had a left inguinal bulge for about 4 years. It has gotten larger and is more frequently painful. He is taken to surgery now for robotic laparoscopic repair. Findings Large indirect hernia. Description of Procedure Patient was taken to surgery and induced into general anesthesia. The abdomen was prepped and draped. Trocars were placed in the usual fashion starting with an applied Medical optical trocar and then switching to robotic trocars under direct visualization. Patient was then placed in Trendelenburg. The robot was brought into the field and the camera was docked and targeted. The instruments were placed in the working arms and positioned appropriately. The surgeon went to the robotic console. An anterior peritoneal flap was created. This was dissected broadly posteriorly. On the medial aspect this was dissected along the rectus abdominis muscle down to David's ligament. Care was taken to attain meticulous hemostasis with the cautery and bipolar throughout. Lateral dissection was then carried out before moving to the dissection of the large hernia sac. Traction on the hernia sac was performed and then the transversalis sling was slowly divided. It was a very large hernia sac and the dissection was lengthy. Care was taken to avoid the cord structures which were kept carefully out of the dissection plane. Eventually we came to the end of the hernia sac and divided it. The sac was then further divided free from the cord structures. The peritoneum was then dissected back more posterior so there was ample room for placement of the mesh. A large 16 x 10 cm left mid 3DMax mesh was placed in the abdominal cavity. It was positioned appropriately in the floor of the inguinal canal structures. 3-0 Vicryl sutures were placed. One suture was placed in David's ligament, the other 2 were anterior and on either side of the inferior epigastric vessels. The sutures tacked the mesh securely to the inguinal canal floor and abdominal wall. 3-0 V lock suture was then used and the peritoneal flap was closed in running fashion. There were no holes to close. We removed the 2 suture needles. The instruments were removed and robot was undocked. CO2 was evacuated and the trocars were removed. Skin wounds were closed with subcuticular 4-0 Monocryl skin suture. The wounds were dressed with Exofin surgical adhesive. Patient was awakened and taken to recovery in good condition. Sponge and needle counts were correct x2. Implants Large 16 x 10 cm left mid 3D max mesh Estimated Blood Loss -5 Drains No Packing No Pathology None sent Complications None Condition Stable Disposition PACU [facility] Billing Surgery - Charge Forward: Surgery Billing (Robotic laparoscopic repair left inguinal hernia)
[2024-10-06] MEDS: LACTATED RINGERS 1,000 ML 30 ML IV CONT ×2 (12:40)
== END 2024-10-06 14:42 | disposition home or self-care (01) ==
PROVIDERS: PCP Internal Medicine; Visit Provider Surgery
PROC: 8E0Y4CZ Robotic Assisted Procedure of Lower Extremity, Percutaneous Endoscopic Approach (ICD-10-PCS; CPT 49650; principal; 2024-10-06 10:30)
DX: K40.90 Unilateral inguinal hernia, without obstruction or gangrene, not specified as recurrent (principal)
CPT/HCPCS: 49650; S2900; 36415; 85025; 86850; 86900; 86901; 93005; C1781; J0690; J1100; J1885; J2003; J2250; J2405; J2704; J3010; J7120